=== PATIENT | male | born 1990 | race Caucasian/White ===

== ENCOUNTER 2017-02-19 10:35 | Day surgery (SDC) | payer OTHER ==
[2017-02-13 12:27] LABS: ABSOLUTE EOSINOPHILS # (AUTO) 0.1 10^3/uL (0.0-0.6); ABSOLUTE LYMPHOCYTES (AUTO) 2.2 10^3/uL (0.5-4.7); ABSOLUTE MONOCYTES (AUTO) 0.5 10^3/uL (0.1-1.4); ABSOLUTE NEUT (AUTO) 4.2 10^3/uL (1.7-8.2); BASOPHILS % (AUTO) 0.6 % (0-2); HEMOGLOBIN 15.5 g/dL (13.5-17.0); HGB HCT DIFFERENCE 0.5; LYMPHOCYTES % (AUTO) 30.5 % (13-45); MEAN CORPUSCULAR HEMOGLOBIN 30.4 pg (27.0-33.4); MEAN CORPUSCULAR HGB CONC 33.8 g/dL (32.0-36.0); MEAN CORPUSCULAR VOLUME 90 fl (80-97); MONOCYTES % (AUTO) 7.4 % (3-13); SEGMENTED NEUTROPHILS % (AUTO) 59.5 % (42-78); WHITE BLOOD COUNT 7.1 10^3/uL (4.0-10.5)
[2017-02-13 12:36] LABS: APPEARANCE,URINE CLEAR; BILIRUBIN,URINE NEGATIVE (NEGATIVE); GLUCOSE, URINE NEGATIVE (NEGATIVE); KETONES,URINE NEGATIVE (NEGATIVE); LEUKOCYTE ESTERASE,URINE NEGATIVE (NEGATIVE); NITRITE,URINE NEGATIVE (NEGATIVE); PROTEIN,URINE NEGATIVE (NEGATIVE); URINE SPECIFIC GRAVITY 1.012; UROBILINOGEN,URINE NEGATIVE mg/dL (<2.0)
[2017-02-13 12:44] LABS: ANION GAP 10 (5-19); BLOOD UREA NITROGEN 13 mg/dL (7-20); CALCIUM 10.7 mg/dL (8.4-10.2); CARBON DIOXIDE 30 mmol/L (22-30); CHLORIDE 101 mmol/L (98-107); CREATININE RESULT 0.92 mg/dL (0.52-1.25); GLUCOSE 101 mg/dL (75-110); SODIUM 140.8 mmol/L (137-145)
--- NOTE | 2017-02-14 11:18 | EKG REPORT ---
SEVERITY:- NORMAL ECG - SINUS RHYTHM : Confirmed by: Jossy Calderon 14-Feb-2017 11:17:34
[~2017-02-19 10:35] MED LIST: BUPIVACAINE HCL 0.5 % INJ/PF 30 ML SDV ONE; CEFAZOLIN 2 GM/D5W RTU 2 GM/50 ML RTUPB IV PRN; LACTATED RINGERS 1000 ML IV PRN; LIDOCAINE 0.5% INJ-PF (5 MG/ML) 50 ML SDV SUBCUT PRN
[2017-02-19] MEDS ORDERED: FENTANYL CITRATE INJ/PF 250 MCG/5 ML AMPULE ONE (12:43)
[2017-02-19] MEDS ORDERED: PROPOFOL INJ 200 MG/20 ML VIAL IV ONE ×2 (12:43→13:01)
[2017-02-19] MEDS ORDERED: DEXMEDETOMIDINE INJ 80 MCG/20 ML VIAL IV ONE (12:44)
[2017-02-19] MEDS ORDERED: MIDAZOLAM 2 MG/2 ML INJ ONE (12:44)
[2017-02-19] MEDS ORDERED: LIDOCAINE 1% INJ-PF (10 MG/ML) 30 ML SDV ONE (12:59)
[2017-02-19] MEDS ORDERED: PROMETHAZINE HCL INJ 25 MG/1 ML VIAL IV PRN ×2 (13:06)
[2017-02-19] MEDS ORDERED: FENTANYL CITRATE INJ/PF 100 MCG/2 ML AMPUL IV PRN ×3 (13:06)
[2017-02-19] MEDS ORDERED: MEPERIDINE HCL/PF INJ 25 MG/1 ML DISP.SYRIN IV PRN (13:06)
[2017-02-19] MEDS ORDERED: DIPHENHYDRAMINE HCL 50 MG/ML VIAL IV PRN (13:06)
[2017-02-19] MEDS ORDERED: OXYCODONE-ACETAMINOPHEN 5-325 MG TABLET PO PRN ×3 (13:06→14:21)
[2017-02-19] MEDS ORDERED: MORPHINE SULFATE 10 MG/ML INJ IV PRN (13:06)
[2017-02-19] MEDS ORDERED: ONDANSETRON HCL INJ/PF 4 MG/2 ML SDV IV PRN (14:21)
[2017-02-19] MEDS ORDERED: HYDROMORPHONE HCL INJ/PF 2 MG/ML AMPULE IV PRN (14:21)
--- NOTE | 2017-02-19 14:22 | PDOC DISCHARGE SUMMARY ---
Discharge Summary (SDC) - Discharge Final Diagnosis: Right 5th Middle Phalanx Neck Fracture Date of Surgery: 02/19/17 Treatment or Instructions: Schedule Follow Up w/ Dr. Corbin Rodriguez @ [facility] for Surgery to be seen in 10-14 days or as scheduled [place]: [place]: [place]: May remove dressing on postop day #3, keep incision covered and dry. Ice and elevate May begin finger range of motion attempting to make full fist. Stool softener of choice when on pain medication. Prescriptions: Oxycodone HCl/Acetaminophen [Percocet 5-325 mg Tablet] 1 - 2 tab PO ASDIR PRN # 35 tablet PRN Reason: Respiratory Treatments at Home: Deep Breathing/Coughing Discharge Activity: No Lifting/Push/Pulling Report the Following to Your Physician Immediately: Fever over 101 Degrees, Unusual Bleeding, Redness, Swelling, Warmth, Increased Soreness, Numbness, Tingling Sensation
[2017-02-19] MEDS: FENTANYL CITRATE INJ/PF 100 MCG/2 ML AMPUL ONE ×4 (14:25→14:43)
--- NOTE | 2017-02-19 14:27 | Operative Report ---
Operative Report DATE OF SURGERY: 02/19/17 PREOPERATIVE DIAGNOSIS: Refracture Right 5th Middle Phalanx Neck POSTOPERATIVE DIAGNOSIS: Refracture Right 5th Middle Phalanx Neck OPERATION: ORIF Right 5th Middle Phalanx Neck Fracture SURGEON: JUAN PICKENS ANESTHESIA: LMAC COMPLICATIONS: None ESTIMATED BLOOD LOSS: Minimal PROCEDURE: Indication for above procedure: 26-year-old male sustained a fracture of his small finger middle phalanx. He underwent closed reduction percutaneous pinning after pin removal. Had been doing well until he began having increasing pain. X-rays demonstrated refracture versus delayed union. Because of the recurrence of displacement recommended operative treatment. Risks and benefits were explained patient verbalized understanding consented for the procedure. Procedure In Detail: Patient was seen and evaluated in the preoperative holding area. The RIGHT upper extremity was initialized and marked. Patient received 2g of Ancef IV for bacterial prophylaxis. Patient was taken back to the operative room where transferred to the operative table and placed under general anesthesia. Once they were adequately anesthetized a nonsterile tourniquet was placed on the upper extremity. A surgical team debriefing was performed ensuring all instrumentation was available, the surgical procedure was discussed with possible concerns reviewed. Digital block was performed utilizing a 50:50 mixture of 1% lidocaine and 0.5% Marcaine without epinephrine. The upper extremity was prepped with chlorhexidine and alcohol and draped in a sterile fashion. A timeout was done identifying correct patient, procedure and extremity everyone in attendance agree with this and verbalized no concerns. The extremity was exsanguinated the tourniquet was inflated to 250 mmHg. Multiple attempts at closed reduction were done without voodoo. Furthermore given patient's previous K wire placement, K wires could not be placed retrograde and provide good fixation. After attempted closed reduction patient was noted to have tourniquet discomfort thus the tourniquet was deflated. A Henniker drain was then placed around the digit provide local tourniquet. A small longitudinal skin incision was made dorsolaterally at the level of the middle phalanx neck dissection was performed down to the fracture site. With a Newton elevator osteoclasis was performed obtaining free mobile fracture. I was then able to elevate the fracture and place it in the anatomic position. 0.045 K wires were utilized and placed in anterograde fashion with cross pinning. K wires were continued out the opposite side and cut below the skin to avoid irritation at the proximal interphalangeal joint. A final 0.045 K wires placed transarticular through the DIP joint provide further stability. Final C-arm fluoroscopy was obtained multiple views demonstrating voodoo of the middle phalanx alignment. With tenodesis and forearm squeeze there was no evidence of rotational malalignment. An additional 10 mL of 0.5% Marcaine without epinephrine was injected for postoperative pain control. Wound was dressed with Xeroform cast padding and a AlumaFoam splint. Sponge counts, instrument counts, needle counts counts were correct. Patient was then awoken from anesthesia. Transferred from the operating room table to the operating room stretcher. There was no intraoperative complications patient tolerated procedure well stable to PACU. Postoperative plan: Patient will follow-up in the office in 10-14 days we will obtain radiographs. Plan will be for pin removal at about 8-10 weeks.
[2017-02-19] MEDS ORDERED: LIDOCAINE 2% INJ-PF (20 MG/ML) 10 ML AMPUL ONE (14:38)
[2017-02-19 16:57] VITALS: BP 115/79
== END 2017-02-19 16:25 | disposition home or self-care (01) ==
LOC: OROUT 10:35
PROVIDERS: ATTEND Orthopaedic Surgery
PROC: 0PST04Z Reposition Right Finger Phalanx with Internal Fixation Device, Open Approach (ICD-10-PCS; principal; 2017-02-19 12:30)
DX: S62.626D Displaced fracture of middle phalanx of right little finger, subsequent encounter for fracture with routine healing (principal); X58.XXXD Exposure to other specified factors, subsequent encounter; M79.644 Pain in right finger(s); F11.99 Opioid use, unspecified with unspecified opioid-induced disorder
CPT/HCPCS: 93005; 36415; 85025; 80048; 71020; 81001; 73120; 93010; 26735; C1769; C1713; J2250; J3010 ×2; J3490 ×2; J2704; J0690; 01830

== ENCOUNTER 2017-03-20 10:19 | Emergency (ER) | payer OTHER ==
[2017-03-20] MEDS ORDERED: CEPHALEXIN 500 MG CAPSULE PO ONE (11:41)
--- NOTE | 2017-03-20 11:44 | ER Document Report ---
HPI - HPI Patient complains to provider of: re-injured fifth right finger Onset: Yesterday Onset/Duration: Sudden Pain Level: 5 Context: 26-year-old male with history of right fifth finger fracture and orthopedic intervention twice by Dr. Pickens hit his right fifth finger on a piece of fluid while he was sledgehammering yesterday at work. The finger was doing better and he thinks he might have refractured it. He is not able to see Dr. Pickens today so he came here to [place] for an x-ray. Associated Symptoms: None Exacerbated by: Movement Relieved by: Denies Similar symptoms previously: Yes Recently seen / treated by doctor: No - ROS ROS below otherwise negative: Yes Systems Reviewed and Negative: Yes All other systems reviewed and negative - CARDIOVASCULAR Cardiovascular: DENIES: Chest pain - DERM Skin Color: Normal Past Medical History - General Information source: Patient - Social History Smoking Status: Never Smoker Chew tobacco use (# tins/day): No Frequency of alcohol use: None Drug Abuse: None Lives with: Family Family History: Reviewed & Not Pertinent Patient has suicidal ideation: No Patient has homicidal ideation: No Renal/ Medical History: Denies: Hx Peritoneal Dialysis Past Surgical History: Reports: Hx Orthopedic Surgery - finger pinning - Immunizations Hx Diphtheria, Pertussis, Tetanus Vaccination: Yes Vertical Provider Document - CONSTITUTIONAL Agree With Documented VS: Yes Exam Limitations: No Limitations General Appearance: No Apparent Distress - INFECTION CONTROL TRAVEL OUTSIDE OF THE [place]S. IN LAST 30 DAYS: No - HEENT HEENT: Atraumatic - NECK Neck: Supple - RESPIRATORY O2 Sat by Pulse Oximetry: 100 - MUSCULOSKELETAL/EXTREMETIES Musculoskeletal/Extremeties: Tender, Edema, Eccymosis Notes: abrasion ulnar side of right 5th finger, no flexion at the DIP due to pinning, not hot, not red, swelling (sausage type swelling) to 5th right finger. N/V intact distallyh - NEURO Level of Consciousness: Awake, Alert Motor/Sensory: No Motor Deficit, No Sensory Deficit - DERM Integumentary: Warm, Dry Notes: abrasion see above Course - Vital Signs Vital signs: Temp Pulse Resp BP Pulse Ox 98.4 F 71 20 145/94 H 100 03/20/17 10:25 03/20/17 10:25 03/20/17 10:25 03/20/17 10:25 03/20/17 10:25 Discharge - Discharge Clinical Impression: right 5th finger injury, Abrasion Condition: Good Disposition: HOME, SELF-CARE Instructions: Fractured Finger ([facility]), Abrasions ([facility]) Additional Instructions: Call and schedule an appointment with Dr. Pickens or Saturday Return to the emergency room any concerns Put the splint on the to have at home Antibiotics for possible infection per radiologist Dr. Pickens will have these x-rays in his imaging system at his office Please complete the patient satisfaction survey if you get one, and return it.. If you do not receive a survey, then you can go to the [facility] website, [email or web address] and place your comments about your very good care. Thank you very much. It was a pleasure being your medical provider today. Prescriptions: Cephalexin Monohydrate [Keflex 500 mg Capsule] 500 mg PO QID #20 capsule Oxycodone HCl/Acetaminophen [Percocet 5-325 mg Tablet] 1 - 2 tab PO ASDIR PRN # 15 tablet PRN Reason: Forms: Return to Work Referrals: JUAN PICKENS DO [ACTIVE STAFF] - Follow up as needed
[2017-03-20 12:05] VITALS: BP 127/80
== END 2017-03-20 12:03 | disposition home or self-care (01) ==
LOC: ER 10:19
DX: S60.416A Abrasion of right little finger, initial encounter (principal); S62.606D Fracture of unspecified phalanx of right little finger, subsequent encounter for fracture with routine healing; W22.8XXA Striking against or struck by other objects, initial encounter
CPT/HCPCS: 99283

== ENCOUNTER 2017-06-22 13:35 | Emergency (ER) | payer OTHER ==
--- NOTE | 2017-06-22 14:07 | ER Document Report ---
HPI - HPI Patient complains to provider of: sore throat and finger pain Pain Level: 5 Context: 27 yo male c/o sore throat x 2-3 days and right 5th finger pain x 2 days. pt has hx/o of displaced fracture in right 5th finger for which he had surgery in January of this year. reports he was working on a patio, holding a wheelbarrow, the wheelbarrow toppled and caught finger, finger twisted and now hurts. Associated Symptoms: None Exacerbated by: Denies Similar symptoms previously: Yes Recently seen / treated by doctor: No - ROS Systems Reviewed and Negative: Yes All other systems reviewed and negative - DERM Skin Color: Normal Past Medical History - General Information source: Patient - Social History Smoking Status: Never Smoker Frequency of alcohol use: None Drug Abuse: None Lives with: Family Family History: Reviewed & Not Pertinent Patient has suicidal ideation: No Patient has homicidal ideation: No - Past Medical History Cardiac Medical History: Denies: Hx Coronary Artery Disease, Hx Heart Attack, Hx Hypertension Pulmonary Medical History: Denies: Hx Asthma - BORDERLINE A BABY, Hx Bronchitis, Hx COPD, Hx Pneumonia Neurological Medical History: Denies: Hx Cerebrovascular Accident, Hx Seizures Renal/ Medical History: Denies: Hx Peritoneal Dialysis Musculoskeltal Medical History: Denies Hx Arthritis Past Surgical History: Reports: Hx Orthopedic Surgery - finger pinning - Immunizations Hx Diphtheria, Pertussis, Tetanus Vaccination: Yes Vertical Provider Document - CONSTITUTIONAL Agree With Documented VS: Yes Exam Limitations: No Limitations General Appearance: WD/WN, No Apparent Distress - INFECTION CONTROL TRAVEL OUTSIDE OF THE [place] IN LAST 30 DAYS: No - HEENT HEENT: Atraumatic, PERRLA, Pharyngeal Exudate, Pharyngeal Tenderness, Pharyngeal Erythema - NECK Neck: Normal Inspection, Supple - RESPIRATORY Respiratory: Breath Sounds Normal, No Respiratory Distress O2 Sat by Pulse Oximetry: 100 - CARDIOVASCULAR Cardiovascular: Regular Rate, Regular Rhythm - MUSCULOSKELETAL/EXTREMETIES Musculoskeletal/Extremeties: Tender - right 5th finger over PIP, No Edema - NEURO Level of Consciousness: Awake, Alert, Appropriate - DERM Integumentary: Warm, Dry Course - Re-evaluation Re-evalutation: 06/22/17 14:31 rapid strep negative. xray showing no acute fractures, post traumatic degenerative changes. all results reviewed with patient. pt requesting pain medication. ultram and ibuprofen offered, pt declines. pt stable for discharge and follow up with orthopedist if pain persists 06/22/17 14:36 offered oral steroids for throat discomfort and tonsillar swelling. pt declines at this time. no suspicion for peritonsillar abscess - Vital Signs Vital signs: Temp Pulse Resp BP Pulse Ox 98.4 F 66 16 130/72 H 100 06/22/17 13:42 06/22/17 13:42 06/22/17 13:42 06/22/17 13:42 06/22/17 13:42 Discharge - Discharge Clinical Impression: Sore throat Finger injury Qualifiers: Encounter type: initial encounter Laterality: right Qualified Code(s): S69.91XA - Unspecified injury of right wrist, hand and finger(s), initial encounter Condition: Stable Disposition: HOME, SELF-CARE Instructions: Sore Throat ([facility]), Sprained Finger ([facility]), Ice & Elevation ([facility]), Use of [id number]-Ejq-Ssydjgy Ibuprofen ([facility]) Additional Instructions: your strep test was negative today. a throat culture and mono test are pending. we will call you with those results your finger xray was negative today for acute fracture. it does show some degenerative changes from your previous injury and surgery. lozenges, salt water gargles and motrin for throat discomfort ice, elevate and motrin for finger pain. wear splint for comfort and protection (pt has splint) follow up with orthopedist if finger pain persists follow up with your primary care if throat pain persists
--- NOTE | 2017-06-22 14:21 | RADIOLOGY REPORT (SQ) ---
EXAM DESCRIPTION: HAND RIGHT 3 VIEWS COMPLETED DATE/TIME: 06/22/2017 2:10 pm REASON FOR STUDY: trauma, 5th finger injury COMPARISON: 03/20/2017 EXAM PARAMETERS: NUMBER OF VIEWS: Three views. TECHNIQUE: AP, lateral and oblique radiographic images acquired of the right hand. LIMITATIONS: None. FINDINGS: MINERALIZATION: Normal. BONES: Relatively stable appearance of ununited chronic fracture deformity involving the middle phala nx 5th digit right with interval removal of fixation wires. Bones otherwise intact. 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 Articulations otherwise maintained. SOFT TISSUES: No soft tissue swelling. No foreign body. OTHER: No other significant finding. IMPRESSION: CHRONIC POSTTRAUMATIC/ DEGENERATIVE CHANGE INVOLVING THE 5TH DIGIT RIGHT HAND. NO DEFIN ITE ACUTE OSSEOUS ABNORMALITY IDENTIFIED. TECHNICAL DOCUMENTATION: JOB ID: [id number] [employer]- All Rights Reserved
[2017-06-22 14:46] VITALS: BP 106/79
== END 2017-06-22 14:41 | disposition home or self-care (01) ==
LOC: ER 13:35
DX: S69.91XA Unspecified injury of right wrist, hand and finger(s), initial encounter (principal); W22.8XXA Striking against or struck by other objects, initial encounter; J02.9 Acute pharyngitis, unspecified; M79.644 Pain in right finger(s); Z87.81 Personal history of (healed) traumatic fracture; Z98.890 Other specified postprocedural states
CPT/HCPCS: 36415; 86308; 87070; 87077; 87880; 99283

== ENCOUNTER 2017-10-19 19:39 | Emergency (ER) | payer SELFPAY ==
--- NOTE | 2017-10-19 19:52 | ER Document Report ---
ED Psych Disorder / Suicide - General Time Seen by Provider: 10/19/17 19:47 Mode of Arrival: Ambulatory Information source: Patient, Transfer Record, Office TRAVEL OUTSIDE OF THE U.S. IN LAST 30 DAYS: No - HPI Patient complains to provider of: Other - Substance abuse Onset was: Gradual Quality of pain: No pain Suicide Risk Factors: Substance abuse Normal mood: No Associated symptoms: Angry Similar symptoms previously: Yes Recently seen / treated by doctor: Yes Notes: Patient is a 27-year-old male with a history of substance abuse, with a recent stay at [facility] for substance abuse treatment, was discharged from there 3 weeks ago, he recently relapsed and used both heroin and cocaine last week, he is currently in a methadone treatment program and takes methadone on a daily basis, apparently his father found drug paraphernalia to indicate that he was smoking cocaine and methamphetamines all day today, patient is quite angry and it is difficult to get appropriate information from him as he is somewhat uncooperative in providing information accurately IVC paperwork states "Patient is a heroin abuser and addict who receives medication assisted treatment daily at the methadone clinic. Despite the treatment, patient continues to ingest heroin through inhalation and snorting. He is also abusing methamphetamine. The combination of methadone treatment (at a moderately high dose) with heroin and methamphetamine places him in grave danger of . He has overdosed and refused medical attention. He owns his dealers money and as a result the patient has placed his family at risk. Patient was recently diagnosed with a heart condition as a result of his heroin use and advised continued drug use places him at imminent risk for . Patient is considered a danger to self and others and in need of treatment for his safety and health." - Related Data Allergies/Adverse Reactions: hydrocodone Allergy (Verified 10/19/17 20:08) ITCHY, NAUSEA Past Medical History - General Information source: Patient - Social History Smoking Status: Unknown if Ever Smoked Drug Abuse: Cocaine, Heroin, Marijuana, Methamphetamine Lives with: Family Family History: Reviewed & Not Pertinent - Past Medical History Cardiac Medical History: Denies: Hx Coronary Artery Disease, Hx Heart Attack, Hx Hypertension Pulmonary Medical History: Denies: Hx Asthma - BORDERLINE A BABY, Hx Bronchitis, Hx COPD, Hx Pneumonia Neurological Medical History: Denies: Hx Cerebrovascular Accident, Hx Seizures Renal/ Medical History: Denies: Hx Peritoneal Dialysis Musculoskeltal Medical History: Denies Hx Arthritis Past Surgical History: Reports: Hx Orthopedic Surgery - finger pinning - Immunizations Immunizations up to date: Yes Hx Diphtheria, Pertussis, Tetanus Vaccination: Yes Review of Systems - Review of Systems Constitutional: No symptoms reported EENT: No symptoms reported Cardiovascular: No symptoms reported Respiratory: No symptoms reported Gastrointestinal: No symptoms reported Genitourinary: No symptoms reported Male Genitourinary: No symptoms reported Musculoskeletal: No symptoms reported Skin: No symptoms reported Hematologic/Lymphatic: No symptoms reported Neurological/Psychological: See HPI -: Yes All other systems reviewed and negative Physical Exam - Vital signs Vitals: Temp Pulse Resp BP Pulse Ox 98.0 F 72 16 149/89 H 95 10/19/17 20:06 10/19/17 20:06 10/19/17 20:06 10/19/17 20:06 10/19/17 20:06 Interpretation: Normal - General General appearance: Appears well, Alert - HEENT Head: Normocephalic, Atraumatic Eyes: Normal Pupils: PERRL - Respiratory Respiratory status: No respiratory distress Chest status: Nontender Breath sounds: Normal Chest palpation: Normal - Cardiovascular Rhythm: Regular Heart sounds: Normal auscultation Murmur: No - Abdominal Inspection: Normal Distension: No distension Bowel sounds: Normal Tenderness: Nontender Organomegaly: No organomegaly - Back Back: Normal, Nontender - Extremities General upper extremity: Normal inspection, Nontender, Normal color, Normal ROM , Normal temperature General lower extremity: Normal inspection, Nontender, Normal color, Normal ROM , Normal temperature, Normal weight bearing. No: Lindsay's sign - Neurological Neuro grossly intact: Yes Cognition: Normal Orientation: AAOx4 [place] Coma Scale Eye Opening: Spontaneous [place] Coma Scale Verbal: Oriented Ben[place]o Coma Scale Motor: Obeys Commands Benigno Coma Scale Total: 15 Speech: Normal Motor strength normal: LUE, RUE, LLE, RLE Sensory: Normal - Psychological Associated symptoms: Angry, Irritable - Skin Skin Temperature: Warm Skin Moisture: Dry Skin Color: Normal Course - Vital Signs Vital signs: Temp Pulse Resp BP Pulse Ox 98.5 F 80 18 124/69 99 10/20/17 12:32 10/20/17 12:32 10/20/17 12:32 10/20/17 12:32 10/20/17 12:32 - Laboratory Result Diagrams: 10/19/17 19:50 10/19/17 19:50 Laboratory results interpreted by me: 10/19/17 10/19/17 19:50 19:50 Seg Neutrophils % 38.5 L Lymphocytes % 47.0 H Salicylates < 1.0 L Acetaminophen < 10 L - EKG Interpretation by Me EKG shows normal: Sinus rhythm Rate: Normal Rhythm: NSR Discharge - Discharge Clinical Impression: Substance abuse Condition: Fair Disposition: PSYCH HOSP/UNIT
[2017-10-19] MEDS ORDERED: BENZTROPINE MESYLATE INJ 2 MG/2 ML AMPULE IM SCH (20:00)
[2017-10-19 20:06] LABS: ABSOLUTE BASOPHILS # (AUTO) 0.1 10^3/uL (0.0-0.2); ABSOLUTE EOSINOPHILS # (AUTO) 0.2 10^3/uL (0.0-0.6); ABSOLUTE LYMPHOCYTES (AUTO) 4.1 10^3/uL (0.5-4.7); ABSOLUTE MONOCYTES (AUTO) 0.9 10^3/uL (0.1-1.4); ABSOLUTE NEUT (AUTO) 3.3 10^3/uL (1.7-8.2); BASOPHILS % (AUTO) 0.9 % (0-2); EOSINOPHILS % (AUTO) 2.8 % (0-6); HEMOGLOBIN 14.3 g/dL (13.5-17.0); HGB HCT DIFFERENCE 1.9; MEAN CORPUSCULAR HEMOGLOBIN 30.5 pg (27.0-33.4); MEAN CORPUSCULAR HGB CONC 34.8 g/dL (32.0-36.0); MEAN CORPUSCULAR VOLUME 88 fl (80-97); MONOCYTES % (AUTO) 10.8 % (3-13); RED BLOOD COUNT 4.68 10^6/uL (4.35-5.55); RED CELL DISTRIBUTION WIDTH 13.1 % (11.5-14.0); SEGMENTED NEUTROPHILS % (AUTO) 38.5 % (42-78); WHITE BLOOD COUNT 8.7 10^3/uL (4.0-10.5)
[2017-10-19 20:23] LABS: ALANINE AMINOTRANSFERASE 25 U/L (21-72); ALBUMIN 4.6 g/dL (3.5-5.0); ALCOHOL < 10 mg/dL (NONE DETECTED); ALKALINE PHOSPHATASE 56 U/L (38-126); ANION GAP 13 (5-19); ASPARTATE AMINO TRANSFERASE 19 U/L (17-59); BILIRUBIN,DIRECT 0.3 mg/dL (0.0-0.4); BILIRUBIN,TOTAL 0.3 mg/dL (0.2-1.3); BLOOD UREA NITROGEN 15 mg/dL (7-20); CALCIUM 9.6 mg/dL (8.4-10.2); CARBON DIOXIDE 27 mmol/L (22-30); CHLORIDE 103 mmol/L (98-107); CREATININE RESULT 1.06 mg/dL (0.52-1.25); GLUCOSE 84 mg/dL (75-110); POTASSIUM 3.9 mmol/L (3.6-5.0); SODIUM 143.4 mmol/L (137-145); TOTAL PROTEIN 7.2 g/dL (6.3-8.2)
[2017-10-20 01:08] LABS: APPEARANCE,URINE CLEAR; BILIRUBIN,URINE NEGATIVE (NEGATIVE); GLUCOSE, URINE NEGATIVE (NEGATIVE); KETONES,URINE NEGATIVE (NEGATIVE); LEUKOCYTE ESTERASE,URINE NEGATIVE (NEGATIVE); NITRITE,URINE NEGATIVE (NEGATIVE); PROTEIN,URINE NEGATIVE (NEGATIVE); URINE SPECIFIC GRAVITY 1.018; UROBILINOGEN,URINE NEGATIVE mg/dL (<2.0)
[2017-10-20 01:30] LABS: URINE BARBITURATES SCREEN NEGATIVE; URINE METHADONE SCREEN UNCONFIRMED POSITIVE; URINE OPIATES LOW UNCONFIRMED POSITIVE; URINE PHENCYCLIDINE SCREEN NEGATIVE
--- NOTE | 2017-10-20 09:17 | EKG REPORT ---
SEVERITY:- NORMAL ECG - SINUS RHYTHM : Confirmed by: Jossy Calderon 20-Oct-2017 09:16:59
[2017-10-20] MEDS ORDERED: BENZTROPINE MESYLATE INJ 2 MG/2 ML AMPULE IM ONE (10:00)
[2017-10-20] MEDS ORDERED: ONDANSETRON 4 MG TAB.RAPDIS PO PRN (10:39)
--- NOTE | 2017-10-20 10:43 | PSYCHOLOGICAL NOTE ---
Psych Note - Psych Note Psych Note: Patient is a 27-year-old male who presented under involuntary commitment due to being considered a danger to himself due to excessive chronic daily drug use, mixed with prescribed methadone. Patient was picked up by law enforcement at his home and brought to the emergency department. Patient states nothing specific happened and he does not know why he is here. Please defer to Dr. Jaeger's report for additional information and diagnostic impression.
--- NOTE | 2017-10-20 10:50 | ER Document Report ---
Doctor's Note Notes: 10/20/17 10:48 Patient does not currently have any signs of withdrawal, no tachycardia, no diaphoresis, no vomiting. I do expect the patient to develop withdrawal symptoms at some point today so I have written for as needed Zofran, clonidine, ibuprofen and Bentyl. Dr. Jaeger will speak with the patient again later today , currently seeking inpatient treatment as patient is felt to be a danger to himself and others due to his substance abuse.
--- NOTE | 2017-10-20 12:30 | PSYCHOLOGICAL NOTE ---
Psych Note - Psych Note Psych Note: Patient has been abusing heroin, cocaine, methamphetamine, and marijuana for approximately 2 years. He started medication assisted treatment with the [facility] approximately 1 year ago and since that time Patient has continued to use the above mentioned drugs in combination with his methadone treatment. Patient has overdosed and refused medical treatment after receiving Narcan, watched his friend overdose on tainted heroin and leave him without providing assistance (patient possessed other 1/2 of tainted heroin), been diagnosed with a heart condition secondary to heroin use, been arrested for possession, continue to have his life and his family's lives threatened by his dealers secondary to owing money to the dealers, continue to significantly decline in his ability to care for himself as evidenced by his increased use of illegal drugs despite their negative impact on his everyday living, and impaired insight, judgment and impulse control. Patient went voluntarily to [facility] for treatment and was released after 12 days (approximately 3 weeks ago) and relapsed within the first week despite daily engagement with his therapist. Patient increased his use of illegal drugs during the past three weeks and continues to place himself and his family in danger. Patient is using heroin, methamphetamine, cocaine, marijuana multiple times daily despite a moderate treatment dose of methadone Patient presents as argumentative, paranoid that his therapist and parents are not trying to help him despite evidence to the contrary, manipulative as he continues to minimize his use and externalize blame to others as "triggers." Patient has taken on the identity as an "addict." Patient's self-esteem is fractured and he thinks very poorly of himself, and is mired down in guilt and shame, such that he works very hard to convince others he is doing well. His distortions regarding his well-being are rising to the level of delusional thinking and without immediate intervention it is more likely than not, his impaired perceptions and thought processes resulting from the daily drug use will result in sooner rather than later. Patient continues to request the IVC be rescinded, as he believes he can manage his addiction on his own. He continues to believe he was seeking residential treatment and was close to admission, though he is unable to provide the name of any program. Patient reports relapse is expected and is "ok" and demonstrates no insight that consequences are also a part of relapse. Patient remains in denial of the depth of his addiction, stating he has only used a "handful of times" and when confronted with evidence to the contrary, he becomes argumentative and states he can handle his addiction on his own, as he feels he is doing "well." Despite multiple attempts to ground Patient in reality , he remained resistant and fixated on needing methadone whether his body needs it or not, and that he is capable of "handling my recovery on my own." Patient provided verbal consent to speak with his counselor at the [facility]. Patient was advised he would not receive methadone while at [facility]. Collateral with Patient's family revealed a history of heroin abuse and most recently an increased use of heroin, cocaine, methamphetamine, and marijuana, all while using a moderate dose of methadone prescribed by the [facility]. They revealed a history of non-compliance with his treatment plan following discharge from [facility] and expressed disappointment with Patient's ability to manipulate his counselors and inability to receive longer inpatient treatment. Parents are supportive of Patient but understand he needs intensive inpatient treatment to reach the best successful outcome. Patient was alert and oriented to person, place, time, and circumstance. Patient was calm but argumentative and angry. He denied suicidal / homicidal ideation, intent, or plan. He denied psychosis but delusional thought processes were present secondary to irrational thought processes. Conversational speech was within normal limits for rate, tone, and prosody. Intellectual abilities are estimated within the average range. Attention and concentration was fair. Insight, judgment, and impulse control are impaired. PLAN: Patient to remain on IVC and seek inpatient substance abuse treatment at [facility] or [facility]. In summary, Patient's ability to exercise self-control , judgment, and conduct his daily responsibilities are impaired. Additionally, his behavior is grossly irrational, and his perception of his behavior colored by his addiction, rising to the level of non-reality and delusional thinking, demonstrating evidence he is unable to safely care for himself. Also, his actions with regard to his drug use and dealings has created a substantial risk of bodily harm to his family. ED Physician in agreement with recommendation and disposition.
[2017-10-20] MEDS: BENZTROPINE MESYLATE 1 MG TABLET PO PRN (13:25)
[2017-10-20] MEDS: DICYCLOMINE HCL 20 MG TABLET PO PRN (13:25)
[2017-10-20] MEDS: IBUPROFEN 800 MG TABLET PO PRN (13:26)
[2017-10-20] MEDS: CLONIDINE HCL 0.1 MG TABLET PO PRN (13:26)
[2017-10-20] MEDS: HALOPERIDOL LACTATE INJ 5 MG/1 ML VIAL IM PRN ×2 (13:27→20:54)
[2017-10-21] MEDS: HALOPERIDOL LACTATE INJ 5 MG/1 ML VIAL IM PRN (07:57)
[2017-10-21] MEDS: BENZTROPINE MESYLATE 1 MG TABLET PO PRN (08:19)
[2017-10-21] MEDS: IBUPROFEN 800 MG TABLET PO PRN (08:20)
--- NOTE | 2017-10-21 09:15 | ER Document Report ---
Doctor's Note Notes: 10/21/17 09:14 I have evaluated this patient this am and has no c/o at this time. Feels all of their needs are being met and physical exam is normal. No signs of withdrawal at this time. Pt hopefully going to [facility] today. Awaiting dispositon per mental health.
[2017-10-21] MEDS: CLONIDINE HCL 0.1 MG TABLET PO PRN (13:30)
[2017-10-21] MEDS: DICYCLOMINE HCL 20 MG TABLET PO PRN (14:18)
[2017-10-21] MEDS ORDERED: HALOPERIDOL 5 MG TABLET PO PRN ×2 (14:34→15:30)
[2017-10-21] MEDS ORDERED: ONDANSETRON 4 MG TAB.RAPDIS PO PRN (15:30)
--- NOTE | 2017-10-21 16:37 | PSYCHOLOGICAL NOTE ---
Psych Note - Psych Note Psych Note: Conducted check in with patient who is a 27-year-old male under involuntary commitment. Facilitated phone interview with admissions department at [facility]. Currently awaiting return contact regarding disposition. Received return contact from [facility] who states they need a letter of intent from the [facility] in regards to continuing methadone and/or Suboxone treatment. Contacted the [facility]; however, they are closed their normal business hours are from 6 AM to 12 PM. Will attempt again tomorrow morning. Discussed with Dr. Jaeger who states she will call [facility] directly to discuss this matter further. Patient is alert and oriented. Mood is euthymic with normal affect. Patient denies suicidal/homicidal ideations, intent, plan, means. Patient denies A/VH; delusions not noted. Thought processes were goal oriented towards discharge. Conversational speech was within normal limits for rate, tone, and prosody. Intellectual abilities were estimated within average range. Attention and focus were fair. Insight, judgment, impulse control were poor. Diagnostic impressions 1. Cocaine Intoxication 2. Heroin Intoxication 3. Marijuana Intoxication 4. Methadone Assisted Treatment 5. Heroin Use Disorder 6. Cocaine Use Disorder 7. Marijuana Use Disorder 8. Generalized Anxiety Disorder Patient is recommended to continue under involuntary commitment pending bed availability at [facility] facility.
[2017-10-21] MEDS: HALOPERIDOL LACTATE INJ 5 MG/1 ML VIAL IM SCH (20:04)
[2017-10-21] MEDS: ZIPRASIDONE MESYLATE INJ/PF 20 MG SDV IM PRN (23:41)
[2017-10-22] MEDS: HALOPERIDOL LACTATE INJ 5 MG/1 ML VIAL IM SCH ×3 (05:10→19:52)
[2017-10-22] MEDS: DICYCLOMINE HCL 20 MG TABLET PO PRN (05:27)
[2017-10-22] MEDS: IBUPROFEN 800 MG TABLET PO PRN ×3 (05:27→22:42)
[2017-10-22] MEDS ORDERED: BENZTROPINE MESYLATE INJ 2 MG/2 ML AMPULE IM SCH (10:00)
--- NOTE | 2017-10-22 10:41 | ER Document Report ---
Doctor's Note Notes: 10/22/17 10:41 Patient has been seen and evaluated resting comfortably no acute distress. Laboratory values previous provider note and vital signs have been evaluated. Patient otherwise looks to be stable for disposition/transfer.
[2017-10-22] MEDS: CLONIDINE HCL 0.1 MG TABLET PO PRN (14:29)
[2017-10-22] MEDS ORDERED: CETIRIZINE 5 MG TABLET PO ONE (14:43)
[2017-10-22] MEDS ORDERED: CETIRIZINE 10 MG TABLET PO ONE (14:52)
[2017-10-22] MEDS: ZIPRASIDONE MESYLATE INJ/PF 20 MG SDV IM PRN ×2 (16:16→22:40)
[2017-10-23] MEDS: CLONIDINE HCL 0.1 MG TABLET PO PRN (00:10)
[2017-10-23] MEDS: HALOPERIDOL LACTATE INJ 5 MG/1 ML VIAL IM SCH ×2 (00:10→06:26)
[2017-10-23 06:00] VITALS: BP 118/65
--- NOTE | 2017-10-23 10:06 | PSYCHOLOGICAL NOTE ---
Psych Note - Psych Note Psych Note: Diagnostic impressions 1. Cocaine Intoxication 2. Heroin Intoxication 3. Marijuana Intoxication 4. Methadone Assisted Treatment 5. Heroin Use Disorder 6. Cocaine Use Disorder 7. Marijuana Use Disorder 8. Generalized Anxiety Disorder Impression\plan: Patient has been accepted to [facility]; transportation will occur today
--- NOTE | 2017-10-23 10:19 | ER Document Report ---
Doctor's Note Notes: 10/23/17 10:18 This is a 27-year-old male with history of polysubstance abuse. Requesting transfer to inpatient substance abuse center. Patient has no complaints at this time. Heart and lungs are clear. Judgment and insight intact. Patient has been accepted as an inpatient admission. Exam is been completed. Patient is stable for discharge/transfer at this time.
== END 2017-10-23 11:32 ==
LOC: ER 19:39
DX: F19.10 Other psychoactive substance abuse, uncomplicated (principal); F14.929 Cocaine use, unspecified with intoxication, unspecified; F11.10 Opioid abuse, uncomplicated; F12.10 Cannabis abuse, uncomplicated
CPT/HCPCS: 93005; 99285; 96372; 36415; 80307 ×4; 85025; 80053; 81001; 93010; J0515 ×3; J3490 ×3; S0119; J1630 ×4; J3486 ×2

== ENCOUNTER → 2019-10-09 | Outpatient (CLI) | payer SELFPAY ==
[2019-10-09 13:45] LABS: HEMOGLOBIN 14.4 g/dL (13.5-17.0); MEAN CORPUSCULAR HEMOGLOBIN 31.1 pg (27.0-33.4); MEAN CORPUSCULAR HGB CONC 35.1 g/dL (32.0-36.0); MEAN CORPUSCULAR VOLUME 88 fl (80-97); PLATELET COUNT 271 10^3/uL (150-450); RED BLOOD COUNT 4.64 10^6/uL (4.35-5.55); RED CELL DISTRIBUTION WIDTH 13.1 % (11.5-14.0); WHITE BLOOD COUNT 6.8 10^3/uL (4.0-10.5)
[2019-10-09 14:20] LABS: ALBUMIN 4.8 g/dL (3.5-5.0); ALKALINE PHOSPHATASE 45 U/L (38-126); ANION GAP 9 (5-19); ASPARTATE AMINO TRANSFERASE 21 U/L (17-59); BILIRUBIN,DIRECT 0.1 mg/dL (0.0-0.4); BILIRUBIN,TOTAL 0.8 mg/dL (0.2-1.3); BLOOD UREA NITROGEN 15 mg/dL (7-20); CALCIUM 10.1 mg/dL (8.4-10.2); CARBON DIOXIDE 28 mmol/L (22-30); CHLORIDE 101 mmol/L (98-107); GLUCOSE 89 mg/dL (75-110); POTASSIUM 4.3 mmol/L (3.6-5.0); TOTAL PROTEIN 7.8 g/dL (6.3-8.2)
[2019-10-10 05:38] LABS: HEPATITS B SURFACE ANTIGEN Negative (Negative)
[2019-10-11 09:15] LABS: HEPATITIS C VIRUS ANTIBODY <0.1 s/co ratio (0.0-0.9)
== END ==
LOC: OD 12:21
PROVIDERS: ATTEND Specialist
DX: Z79.899 Other long term (current) drug therapy (principal)
CPT/HCPCS: 36415; 80048; 80074; 80076; 85027; 86701

== ENCOUNTER → 2020-01-08 | Outpatient (CLI) | payer OTHER ==
[2020-01-08 11:36] LABS: ABSOLUTE EOSINOPHILS # (AUTO) 0.2 10^3/uL (0.0-0.6); ABSOLUTE LYMPHOCYTES (AUTO) 2.9 10^3/uL (0.5-4.7); ABSOLUTE MONOCYTES (AUTO) 0.5 10^3/uL (0.1-1.4); ABSOLUTE NEUT (AUTO) 2.8 10^3/uL (1.7-8.2); BASOPHILS % (AUTO) 0.6 % (0-2); EOSINOPHILS % (AUTO) 2.9 % (0-6); HEMATOCRIT 41.5 % (37.9-51.0); HEMOGLOBIN 14.3 g/dL (13.5-17.0); LYMPHOCYTES % (AUTO) 45.3 % (13-45); MEAN CORPUSCULAR HGB CONC 34.4 g/dL (32.0-36.0); MEAN CORPUSCULAR VOLUME 90 fl (80-97); MONOCYTES % (AUTO) 7.5 % (3-13); PLATELET COUNT 238 10^3/uL (150-450); RED CELL DISTRIBUTION WIDTH 13.2 % (11.5-14.0); SEGMENTED NEUTROPHILS % (AUTO) 43.7 % (42-78); TOTAL CELLS COUNTED % (AUTO) 100 %; WHITE BLOOD COUNT 6.5 10^3/uL (4.0-10.5)
[2020-01-08 11:58] LABS: ALBUMIN 4.4 g/dL (3.5-5.0); ALKALINE PHOSPHATASE 43 U/L (38-126); ANION GAP 5 (5-19); ASPARTATE AMINO TRANSFERASE 21 U/L (17-59); BILIRUBIN,TOTAL 0.6 mg/dL (0.2-1.3); BLOOD UREA NITROGEN 11 mg/dL (7-20); CALCIUM 9.6 mg/dL (8.4-10.2); CARBON DIOXIDE 32 mmol/L (22-30); CHLORIDE 103 mmol/L (98-107); CHOLESTEROL 176.63 mg/dL (0-200); GLUCOSE 97 mg/dL (75-110); POTASSIUM 4.7 mmol/L (3.6-5.0); TOTAL PROTEIN 7.1 g/dL (6.3-8.2); TRIGLYCERIDES 56 mg/dL (<150)
[2020-01-08 12:09] LABS: DIRECT LDL 111 mg/dL (<100)
== END ==
LOC: OD 10:58
PROVIDERS: ATTEND Family Medicine
DX: Z00.00 Encounter for general adult medical examination without abnormal findings (principal); F19.11 Other psychoactive substance abuse, in remission; Z87.898 Personal history of other specified conditions
CPT/HCPCS: 36415; 80053; 80061; 84443; 85025; 86592; 86701

== ENCOUNTER → 2020-12-26 | Outpatient (CLI) | payer OTHER ==
[~2020-12-26] MED LIST changes: -BUPIVACAINE HCL 0.5 % INJ/PF 30 ML SDV ONE; -CEFAZOLIN 2 GM/D5W RTU 2 GM/50 ML RTUPB IV PRN; +COVID-19 VACCINE (PFIZER)/PF 30 MCG/0.3 ML VIAL IM ONE; +EPINEPHRINE INJ/PF 1 MG/1 ML AMPULE IM PRN; -LACTATED RINGERS 1000 ML IV PRN; -LIDOCAINE 0.5% INJ-PF (5 MG/ML) 50 ML SDV SUBCUT PRN
== END ==
LOC: EMPHEALTH 07:42
PROVIDERS: ATTEND Internal Medicine
DX: Z02.1 Encounter for pre-employment examination (principal)
CPT/HCPCS: 91300